=== PATIENT | female | born 1955 | race Caucasian/White ===

== ENCOUNTER 2017-03-03 10:14 | Day surgery (SDC) | payer OTHER ==
[~2017-03-03] VITALS: Ht 165.1 cm; Wt 93.6 kg
[~2017-03-03 10:14] MED LIST: ATIVAN1 MG PO; CELEBREX200 MG PO; CYMBALTA60 MG PO; DESYREL100 MG PO; FIBER GUMMIES1 EACH PO; LYRICA150 MG PO; MIRALAX17 GM PO; MOTION SICKNESS25 M1 PO; NULEV0.125 MG PO; OXAYDO5 MG PO; PROBIOTIC1 EAC1 PO; PROMETHAZINE12.5 M1 PO; RESTORIL30 MG PO; THEO-24300 MG PO; VENTOLIN HFA18 GM IH; VITAMIN D-32000 UNI2 PO; ZYRTEC10 M3 PO
== END 2017-03-03 11:53 | disposition home or self-care (01) ==
LOC: PAIN 10:14
DX: M47.812 Spondylosis without myelopathy or radiculopathy, cervical region (principal); M54.2 Cervicalgia; G89.29 Other chronic pain; M51.16 Intervertebral disc disorders with radiculopathy, lumbar region; M47.26 Other spondylosis with radiculopathy, lumbar region; J45.909 Unspecified asthma, uncomplicated; F41.8 Other specified anxiety disorders; M79.1 Myalgia; Z79.891 Long term (current) use of opiate analgesic
CPT/HCPCS: J1030; J2250; J3010; S0020

== ENCOUNTER 2017-04-20 10:17 | Day surgery (SDC) | payer OTHER ==
[~2017-04-20] VITALS: Ht 165.1 cm; Wt 93.4 kg
[~2017-04-20 10:17] MED LIST changes: +ELAVIL25 MG PO
== END 2017-04-20 12:40 | disposition home or self-care (01) ==
LOC: PAIN 10:17 → SDC 11:00 → PAIN 12:40
DX: M47.812 Spondylosis without myelopathy or radiculopathy, cervical region (principal); M50.31 Other cervical disc degeneration, high cervical region; M54.2 Cervicalgia; G89.29 Other chronic pain; M47.26 Other spondylosis with radiculopathy, lumbar region; M79.1 Myalgia; R51 Headache; Z79.891 Long term (current) use of opiate analgesic; E66.3 Overweight; F41.9 Anxiety disorder, unspecified
CPT/HCPCS: J1030; J2250; J3010; S0020

== ENCOUNTER 2017-06-22 09:51 | Day surgery (SDC) | payer OTHER ==
[~2017-06-22] VITALS: Ht 165.1 cm; Wt 98.0 kg
[~2017-06-22 09:51] MED LIST changes: -LYRICA150 MG PO; +LYRICA200 MG PO
[2017-06-22] MEDS ORDERED: LORAZEPAM0.5 MG PO (10:11)
[2017-06-22] MEDS ORDERED: ABILIFY5 MG PO (10:16)
== END 2017-06-22 11:50 | disposition home or self-care (01) ==
LOC: PAIN 09:51 → SDC 10:30 → PAIN 11:50
DX: M47.812 Spondylosis without myelopathy or radiculopathy, cervical region (principal); M47.816 Spondylosis without myelopathy or radiculopathy, lumbar region; M54.16 Radiculopathy, lumbar region; M50.90 Cervical disc disorder, unspecified, unspecified cervical region; M46.92 Unspecified inflammatory spondylopathy, cervical region; F41.9 Anxiety disorder, unspecified; M51.36 Other intervertebral disc degeneration, lumbar region; F32.9 Major depressive disorder, single episode, unspecified; Z88.5 Allergy status to narcotic agent; Z91.013 Allergy to seafood
CPT/HCPCS: J1030; J2250; S0020

== ENCOUNTER 2017-08-04 12:30 | Day surgery (SDC) | payer OTHER ==
[~2017-08-04] VITALS: Ht 165.1 cm; Wt 93.4 kg
[~2017-08-04 12:30] MED LIST changes: +ABILIFY5 MG PO
== END 2017-08-04 15:10 | disposition home or self-care (01) ==
LOC: PAIN 12:30 → SDC 13:30 → PAIN 13:30
DX: M47.816 Spondylosis without myelopathy or radiculopathy, lumbar region (principal); M51.16 Intervertebral disc disorders with radiculopathy, lumbar region; M46.92 Unspecified inflammatory spondylopathy, cervical region; M47.812 Spondylosis without myelopathy or radiculopathy, cervical region; J45.909 Unspecified asthma, uncomplicated; I34.1 Nonrheumatic mitral (valve) prolapse; Z79.891 Long term (current) use of opiate analgesic
CPT/HCPCS: J1030; S0020

== ENCOUNTER 2017-09-01 12:52 | Day surgery (SDC) | payer OTHER ==
[~2017-09-01] VITALS: Ht 160 cm; Wt 93.5 kg
== END 2017-09-01 14:55 | disposition home or self-care (01) ==
LOC: PAIN 12:52 → SDC 13:30 → PAIN 13:30
PROC: 3E0T3TZ Introduction of Destructive Agent into Peripheral Nerves and Plexi, Percutaneous Approach (ICD-10-PCS; principal; 2017-09-01)
PROC: BR161ZZ Fluoroscopy of Lumbar Facet Joint(s) using Low Osmolar Contrast (ICD-10-PCS; principal; 2017-09-01)
DX: M47.816 Spondylosis without myelopathy or radiculopathy, lumbar region (principal); M51.16 Intervertebral disc disorders with radiculopathy, lumbar region; M47.812 Spondylosis without myelopathy or radiculopathy, cervical region; F41.8 Other specified anxiety disorders; J45.909 Unspecified asthma, uncomplicated; M79.1 Myalgia; Z79.891 Long term (current) use of opiate analgesic
CPT/HCPCS: J1030; S0020

== ENCOUNTER 2017-09-08 09:57 | Day surgery (SDC) | payer OTHER ==
[~2017-09-08] VITALS: Ht 165.1 cm; Wt 96.2 kg
== END 2017-09-08 11:23 | disposition home or self-care (01) ==
LOC: PAIN 09:57 → SDC 10:30 → PAIN 11:23
DX: M47.816 Spondylosis without myelopathy or radiculopathy, lumbar region (principal); M51.16 Intervertebral disc disorders with radiculopathy, lumbar region; M47.812 Spondylosis without myelopathy or radiculopathy, cervical region; I10 Essential (primary) hypertension; J45.909 Unspecified asthma, uncomplicated; Z79.891 Long term (current) use of opiate analgesic
CPT/HCPCS: J1030; J2250; S0020